=== PATIENT | male | born 1985 | race Caucasian/White ===

== ENCOUNTER 2020-01-21 21:44 | Emergency (ER) | payer OTHER ==
[~2020-01-21] VITALS: Ht 175.3 cm; Wt 147.4 kg
[2020-01-21 21:44] VITALS: BP 138/81
--- NOTE | 2020-01-21 21:44 | NUR ---
PT ARIELLE BOLAND, PREBOOK. TAKEN TO CHAIR
--- NOTE | 2020-01-21 22:00 | NUR ---
SCOTT HALE AT BEDSIDE FOR MEDICAL EVALUATION.
[2020-01-21 22:35] VITALS: BP 138/81
--- NOTE | 2020-01-21 22:36 | NUR ---
Patient discharged with v/s stable. Written and verbal after care instructions given and explained. Patient verbalized understanding. Police with in custody. All questions addressed prior to discharge. Advised to follow up with PMD.
== END 2020-01-21 22:36 ==
LOC: MED 21:44
DX: L02.611 Cutaneous abscess of right foot (principal); L02.612 Cutaneous abscess of left foot; F11.90 Opioid use, unspecified, uncomplicated; Z02.89 Encounter for other administrative examinations; Z88.2 Allergy status to sulfonamides
CPT/HCPCS: 99283